=== PATIENT | female | born 1985 | race Two or more races ===

== ENCOUNTER 2021-01-01 08:47 | Day surgery (SDC) | payer SELFPAY, OTHER ==
--- NOTE | 2020-12-31 13:22 | PCM.HP.BLA ---
History and Physical Date of Admission: 01/01/21 Surgical History and Physical Elisabeth Sawant, a 35 year old female 9 0 2 0 9, presents for L/S Bilateral Salpingectomy on January 01, 2021 at 10 :45. -- Desires Permanent Sterilization -- Elisabeth Frank is referred per Dr Anatoliy Kaba for permanent sterilization. Pt is a 35yo G 11, P 9, AB 2 with hx of . Most recent delivery was 10/28/20 and no menses since pp. Pt is bottle feeding. No questions or concerns voiced. She has considered thi form of control for quite some time. MEDICATIONS HISTORY: ALLERGIES: No Known Drug Allergies Illnesses - none Hospitalizations - Childbirth and see surgery most recent pap 2019; Review of Systems: GENERAL - Denies fever, or chills SKIN - Denies skin changes EYES - Denies blurred vision, or change in visual acuity EARS - Denies difficulty hearing NOSE - Denies nasal congestion or bleeding MOUTH - Denies sore throat or difficulty swallowing NECK - Denies pain or swelling RESPIRATORY - Denies shortness of breath or wheezing CARDIOVASCULAR - Denies palpitations or chest pain GASTROINTESTINAL - Denies nausea, vomiting, diarrhea, constipation GENITOURINARY - Denies dysuria, frequency of urination, incontinence of urine MUSCULOSKELETAL - Denies joint or muscle pain NEUROLOGICAL - Denies localized numbness or weakness PSYCHIATRIC - Denies depression or anxiety ENDOCRINE - Denies heat or cold intolerance, weight loss or gain HEMATO-IMMUNOLOGIC - Denies excessive bleeding with cuts SOCIAL HISTORY: Alcohol Use - denies drinking Smoking - denies smoking and 2nd hand smoke exposure Diet - no special diet Lifestyle - Exercise - active Job Description - stay at home Illicit Drug Use - denies use of street drugs Sexual Activity - Spouse-Sig Other Name - Amadeo Sawant Spouse-Sig Other Occupation - [employer] Control - wants to discuss tubal FAMILY HISTORY: nc MENSTRUAL HISTORY: LMP Known?- , LMP - 10/28/20 PAST PREGNANCIES: Total Pregnancies - 11; Full Term Pregnancies - 9; Premature - 0; Abortions, Induced - 0; Abortions, Spontaneous - 2; Ectopics - 0; Multiple Births - 0; Living Children - 9 SURGICAL HISTORY: 1. D and C, 2010 PHYSICAL EXAM BP- 114/74 Sitting, Left arm, large cuff Pulse- 76 Regular Weight- 230.56007 lbs Height- 64 inch BMI:39.56 CONSTITUTIONAL - NAD, well nourished, and well developed SKIN - No rash, lesions, or ulcers HEENT - Normocephalic, PERRLA, EOMI NECK - No nodes, no nuchal rigidity and thyroid normal size and texture LYMPH NODES - Palpation of lymph nodes in neck and groins within normal limits LUNGS - CTA x2 without wheezes, crackles or rales CARDIAC - Regular rate and rhythm without rubs, murmurs, or gallops ABDOMEN - Without hepatosplenomegaly, distention, masses, rebound, or guarding; normal bowel sounds; no hernias EXTREMITIES - No edema or calf tenderness NEUROLOGICAL - Cranial nerves II-XII grossly intact PSYCHIATRIC - A and O to time, place, person, mood and affect ASSESSMENT/PLAN: 1. Desires Permanent Sterilization Discussed permanent BC options and LARCs at length and pt desires proceeding with a L/S Zay Salpingectomy. Discussed RBAs including possibility of failure and permanency and pt desires we proceed.
--- NOTE | 2021-01-01 | FALS_PTH ---
PATIENT: KALEIGH HONG LOC: [facility] U#:[id number] AGE/SX: 35/F ROOM: RE01/01/[address]: Dr. Stefan Hancock MD : 1985 BED: DIS: 01/01/2021 SPEC #: [id number] RECD: 01/01/21 12:58 STATUS: JORDY RERock #: [id number] MAYA: 01/01/21 00:[address]: Stefan Hancock DEPT: SURGICAL PATHOLOGY RECD BY: Bart Frederick ENTERED: 01/01/21 12:58 SP TYPE: FALL TUBES OTHR DR: Dr. Anatoliy Kaba MD Tissues: Fallopian tube Procedures: Surgery Specimen Level II HEADER OPERATION: Laparoscopic salpingectomy PRE-OP DIAGNOSIS: Sterilization TISSUE SUBMITTED: Bilateral fallopian tubes MICROSCOPIC DIAGNOSIS Bilateral fallopian tubes, salpingectomy: Bilateral fallopian tubes including fimbrial ends, no pathologic diagnosis. YVES:trever 01/02/2021 MICROSCOPIC DESCRIPTION Slides are reviewed. GROSS DESCRIPTION Received in fixative is one container labeled with the patient's name and designated bilateral fallopian tubes. The specimen consists of bilateral fallopian tubes including fimbrial ends. One fallopian tube measures 6 cm in length and 0.6 cm in diameter and the second fallopian tube measures 7 cm in length and 0.5 cm in diameter. Sections reveal unremarkable cut surfaces. The fallopian tubes are not identified as right or left. Also present is a detached segment of fallopian tube measuring 3 cm in length and 0.5 cm in diameter. A detached fimbrial end is also noted measuring 2 x 1 x 0.3 cm. Billing Clerk sections are submitted in two cassettes with each cassette containing one fallopian tube. Cassette 2 also contains the detached segment of fallopian tube and fimbrial end inked black. / YVES:trever 01/01/21 TC:4 CPT: 73335 x2
[2021-01-01] MEDS: Lactated Ringers 1,000 ML 100 ML IV (09:20)
[2021-01-01 09:40] VITALS: BP 117/68; PULSE 73; RESP 14; TEMP 36.4; O2SAT 100; BMI 39.7
[2021-01-01 10:13] LABS: Internal QC Validated? YES +Cl - CLEAR BKGD; Pregnancy, Serum, hCG Quali. NEGATIVE Negative
[2021-01-01 10:35] LABS: Hematocrit 41.5 % (37-47); Hemoglobin 12.8 g/dL (12.0-15.0); Mean Corp Hgb Conc 30.8 g/dL (32-36); Mean Corpuscular Hgb 28.6 pg (27.0-32.0); Mean Corpuscular Volume 92.6 fL (81-99); Mean Platelet Vol. 9.1 fl (6.2-12.0); Platelet Count 251 K/mm3 (150-450); RBC Distribution Width CV 12.9 % (11.6-14.6); Red Blood Count 4.48 M/mm3 (4.2-5.4)
[2021-01-01 10:40] LABS: International Normalized Ratio 1.1; Prothrombin Time (Protime)PT. 13.3 SECONDS (11.7-14.9)
[2021-01-01 10:41] LABS: Partial Thromboplast Time 28.1 Seconds (24.1-36.2)
[2021-01-01] MEDS: Cefotetan 2 GM in 0.9% NS 100 ML IV (10:57)
--- NOTE | 2021-01-01 10:58 | OP.PCM_ITS ---
Report of Operation Date of Procedure: 01/01/21 Pre-Operative Diagnosis: Desires Permanent Sterilization Post-Operative Diagnosis: Desires Permanent Sterilization Surgery/Procedure Performed:: Bilateral Laparoscopic Salpingectomy Description of Surgical Findings:: Normal pelvis burglar alarm superintendent: Chandrakant Goldstein Type of Anesthesia:: General - Endotracheal Anesthesiologist: Saran Easton Specimen's removed: Bilateral fallopian tubes Estimated Blood Loss (mL): Minimal Fluids Replaced: Crystalloid Description of Procedure: Surgeon: Stefan Hancock MD, FACOG Indications: This is a 35 year old patient who has the above diagnosis. She has considered sterilization for quite some time. She is aware of the permanent nature of the procedure, the failure rate of 1-2%, and the availability of other nonpermanent control options. All questions were answered to consider the patient well-informed. Procedure: The patient was taken to the operating room where after induction of general anesthesia, she was placed in the dorsolithotomy position and prepped and draped in the usual sterile fashion. The bladder was drained of approximately 150 cc of clear yellow urine with a catheter. Anterior cervix was grasped with the tenaculum. Conn cannula was placed and attention was turned toward the laparoscopic portion of the procedure. Approximately 20 cc of half percent ropivacaine was injected subumbilically, suprapubically and midway between. A 5 mm bladeless trocar was placed subumbilically and intraperitoneal placement confirmed. After CO2 insufflation was complete, a 5 mm bladeless trocar was introduced suprapubically. The above findings were noted. A 5 mm bladeless port was then placed midway between these 2 ports for tubal manipulation. Each fallopian tube was identified to its fimbriated end and an Enseal device was used to divide the mesosalpinx to the uterus. Tubes were removed through the lower 5 mm port. The peritoneal cavity and upper abdomen were examined and noted to be normal. Photographs were taken. Laparoscopic instruments with as much CO2 gas as possible were removed and incisions were closed with interrupted 4-0 Monocryl suture. Steri-Strips placed across the incision. Vaginal instruments were removed. The patient tolerated the procedure well was taken to recovery room in satisfactory condition and sponge instrument and needle counts were all reportedly correct. Estimated blood loss for the case was minimal. There were no apparent complications of the surgery. Specimens to pathology was bilateral tubes Grafts/Implants Used: None - Complications None - Admit VTE Documentation VTE Present on Admission: Yes VTE Mechan Device Prophylaxis: SCD's
--- NOTE | 2021-01-01 11:01 | PCM.DC.TUB ---
Discharge Diet: No Restrictions - Increase fluid intake for the next 48 hours. Discharge Activity: Return to Normal Activity, May Drive - when you are no longer taking pain/narcotic medicines., May Shower, May Take a Tub Bath May resume sexual activity in: 3 weeks Additional Activity Instructions:: Ambulate often the next week after surgery. Nothing in the vagina for 5 days. Call your doctor if your incision/area has: Continuous Slow Oozing, Sudden Increased Bleeding, Increased Pain/ Swelling, Increased Redness, Foul Smelling Discharge Call your doctor if you observe: Fever of 101 or Higher, Inability to urinate, Inability to have a bowel movement, Using more than one pad per hour Allergies/Adverse Reactions: Allergies No Known Allergies Allergy (Verified 12/26/20 14:00) Medications to take at Discharge ByAdeyoh Life 1 pkt PO DAILY 12/26/20 Oxycodone [Oxyir] 5 mg PO Q6H PRN PRN 7 Days #7 tab 01/01/21 The following prescriptions were given: Oxycodone [Oxyir] 5 mg PO Q6H PRN PRN 7 Days #7 tab PRN Reason: Pain Score 6-10 Transmission Status: Received by [facility] Primary Care Physician: Anatoliy Kaba MD [Primary Care Provider] - Test Results: Test results from this visit will be discussed in further detail at your follow-up appointment, if applicable. Please Follow Up With: Stefan Hancock MD - [phone] When: 2 to 3 weeks
[2021-01-01] MEDS: Ropivacaine 0.5% 30 ML Vial (11:12)
[2021-01-01 11:47] VITALS: BP 117/68; BP 98/63; PULSE 71; RESP 16; TEMP 36.3; O2SAT 96
[2021-01-01 12:00] VITALS: BP 117/68; BP 96/63; PULSE 63; RESP 16; O2SAT 97
[2021-01-01 12:15] VITALS: BP 100/68; BP 117/68; PULSE 60; RESP 16; TEMP 36.6; O2SAT 100
[2021-01-01 13:57] VITALS: BP 112/69; BP 117/68; PULSE 62; RESP 16; TEMP 36.4; O2SAT 100
== END 2021-01-01 14:06 | disposition home or self-care (01) ==
LOC: SDC 08:48 → AC 09:00
PROVIDERS: PCP Family Medicine; Referring Provider Obstetrics & Gynecology; Visit Provider Obstetrics & Gynecology
PROC: (CPT 58661; principal; 2021-01-01 10:20)
DX: Z30.2 Encounter for sterilization (principal); Z20.828 Contact with and (suspected) exposure to other viral communicable diseases
CPT/HCPCS: 58661; 36415; 84703; 85027; 85610; 85730; 86850; 86900; 86901; 87426; 88302; C9803; J7120; C1760; J2405